=== PATIENT | female | born 1995 | race African-American/Black ===

== ENCOUNTER → 2016-12-26 | Outpatient (CLI) | payer BC ==
--- NOTE | 2016-12-26 17:17 | EEG Procedure Note ---
EEG Procedure Note Date of Service Dec 26, 2016. Start / End Times Start Time: 2:00PM End Time: 3:00PM Referring Physician Nancy Leonard History This is a 21-year-old female with a history of childhood seizures and recent syncope. EEG for further evaluation of possible seizure etiology for syncope. Description This is a 21 electrode EEG with a single channel dedicated to limited EKG. The electrodes were placed in accordance with the International 10-20 system. At the start of the recording the patient was in an awake state. Background was well organized and composed of symmetric mixed alpha and beta frequencies. There was a symmetric well-formed moderate amplitude 9-10 Hz posterior dominant rhythm that was reactive to eye opening and closure. Hyperventilation and Intermittent photic stimulation were not done. Sleep was indicated by vertex waves and symmetric sleep spindles. Interpretation This is a normal awake and asleep 1 hour extended EEG. There was no electrographic seizures or epileptiform discharges. Clinical Correlation A normal EEG does not rule out epilepsy if there is a strong clinical suspicion.
== END | disposition home or self-care (01) ==
LOC: C.NEUR 13:48
PROVIDERS: ATTEND Psychiatry & Neurology Neurology
DX: R55 Syncope and collapse (principal); Z86.69 Personal history of other diseases of the nervous system and sense organs